=== PATIENT | male | born 1960 | race Caucasian/White ===

== ENCOUNTER 2022-09-29 17:47 | Emergency (ER) | payer MEDICARE, SELFPAY ==
[2022-09-29 17:51] VITALS: BP 114/74; PULSE 75; RESP 16; TEMP 36.4; O2SAT 94; BMI 30.3
--- NOTE | 2022-09-29 19:08 | ED.WOUNDLAC ---
HPI - Wound/Laceration <MCKENNA Hayes - Last Filed: 09/29/22 20:38> General Chief Complaint: Wound/Laceration Stated Complaint: R hand gash bleeding Time Seen by Provider: 09/29/22 19:08 Mode of arrival: Family Vehicle History of Present Illness HPI narrative: This is a 62-year-old gentleman who presents emergency department after he accidentally cut himself on some metal framing around the water heater today at home. States his last tetanus was 3 years ago, bleeding is controlled with a pressure dressing. Patient is not on anticoagulants, only medical history is a STEMI 3 years ago with a stent placed to his LAD. He denies any sensation changes, states that he was falling down from the ladder and his right arm grazed the metal bracket holding the water heater. He denies any other injuries, denies neck pain, headache, head injury, whiplash, loss of consciousness, nausea vomiting. He is not had any medication prior to arrival, states that his pain is a 2/10 and his bleeding is controlled with a pressure dressing at this time. Related Data Previous Rx's Medication Instructions Recorded mupirocin 2 % topical ointment 1 applic topical DAILY #22 grams 09/29/22 Allergies Allergy/AdvReac Type Severity Reaction Status Date / Time No Known Drug Allergies Allergy Verified 09/29/22 17:53 Review of Systems <MCKENNA Hayes - Last Filed: 09/29/22 20:38> Review of Systems ROS Unobtainable: All systems reviewed & are unremarkable except as noted in HPI and below Patient History <MCKENNA Hayes - Last Filed: 09/29/22 20:38> Social History Smoking Status: Never smoker Smoking Status: Never smoker alcohol intake frequency: a few times a month Alcohol type: wine Substance Use Type: does not use Exam <MCKENNA Hayes - Last Filed: 09/29/22 20:38> Narrative Exam Narrative: Reviewed vitals signs and nursing notes. General: cooperative, in no acute distress, well groomed MSK: moves all extremities, neurovascularly intact, no weakness, normal tone Skin: brisk capillary refill, without rash, wound to the volar aspect of his right forearm near his rest, linear, bleeding controlled, no foreign body, no suspected tendon or vascular injury Laceration is shaped somewhat like an L, irregular, 10 cm long, fully through the dermis without foreign body, tendon or vascular injury. Slow ooze of blood coming from underneath the wound is controlled with pressure dressing and is hemostatic after suture repair. Wound was thoroughly cleansed with normal saline prior to wound closure. Patient tolerated well Neuro: normal speech and cognition, A&O x3, ambulatory, clear speech Initial Vital Signs Initial Vital Signs: Vital Signs Temperature 97.6 F 09/29/22 17:51 Pulse Rate 75 09/29/22 17:51 Respiratory Rate 16 09/29/22 17:51 Blood Pressure 114/74 09/29/22 17:51 Pulse Oximetry 94 09/29/22 17:51 Oxygen Delivery Method Room Air 09/29/22 17:51 <Hardeep Aaron DO - Last Filed: 09/30/22 01:58> Initial Vital Signs Initial Vital Signs: Vital Signs Temperature 97.6 F 09/29/22 17:51 Pulse Rate 75 09/29/22 17:51 Respiratory Rate 16 09/29/22 17:51 Blood Pressure 114/74 09/29/22 17:51 Pulse Oximetry 94 09/29/22 17:51 Oxygen Delivery Method Room Air 09/29/22 17:51 Procedures <MCKENNA Hayes - Last Filed: 09/29/22 20:38> Laceration Repair Laceration 1: Site: upper extremity Side (If applicable): right Size (cm): 3 Description: linear, flap and irregular Depth: simple, single layer Local Anesthetic: lidocaine 2% Amount of anesthesia used (mL): 5 Pre-repair: wound explored, irrigated extensively and deep structures intact Skin layer closed with: nylon Skin layer suture size: 5-0 Number of sutures: 16 Technique: simple, interrupted and horizontal mattress Course <MCKENNA Hayes - Last Filed: 09/29/22 20:38> Orders Ordered: Discontinued Medications Acetaminophen (Acetaminophen 325 Mg Tablet) 975 mg PO NOW ONE Stop: 09/29/22 19:28 Last Admin: 09/29/22 19:48 Dose: 975 mg Documented By: AGUILAR Bacitracin (Bacitracin Oint 0.9 Gm Pckt) 1 applic TOP NOW ONE Stop: 09/29/22 19:10 Last Admin: 09/29/22 19:28 Dose: 1 applic Documented By: SCAR Diphtheria/Tetanus/Acell Pertussis (Tet,Diph,Pertuss(Acell),Vac/Pf 0.5 Ml Syringe) 0.5 ml IM .ONCE ONE Stop: 09/29/22 19:10 Last Admin: 09/29/22 20:08 Dose: Not Given Documented By: SB Ketorolac Tromethamine (Ketorolac 30 Mg/Ml Vial) 30 mg IM NOW ONE Stop: 09/29/22 19:10 Last Admin: 09/29/22 20:17 Dose: Not Given Documented By: SCAR Ketorolac Tromethamine (Ketorolac 10 Mg Tablet) 10 mg PO NOW ONE Stop: 09/29/22 19:28 Last Admin: 09/29/22 19:49 Dose: 10 mg Documented By: AGUILAR Lidocaine HCl (Lidocaine 2% Inj Sdv 5ml) 5 ml INJ INTRA-OP ONE Stop: 09/29/22 19:10 Last Admin: 09/29/22 19:27 Dose: 5 ml Documented By: SCAR Vital Signs Vital signs: Vital Signs - 8 hr 09/29/22 17:51 Temperature 97.6 F Pulse Rate 75 Respiratory Rate 16 Blood Pressure 114/74 Pulse Oximetry 94 Oxygen Delivery Method Room Air <Hardeep Aaron DO - Last Filed: 09/30/22 01:58> Orders Ordered: Discontinued Medications Acetaminophen (Acetaminophen 325 Mg Tablet) 975 mg PO NOW ONE Stop: 09/29/22 19:28 Last Admin: 09/29/22 19:48 Dose: 975 mg Documented By: AGUILAR Bacitracin (Bacitracin Oint 0.9 Gm Pckt) 1 applic TOP NOW ONE Stop: 09/29/22 19:10 Last Admin: 09/29/22 19:28 Dose: 1 applic Documented By: SCAR Diphtheria/Tetanus/Acell Pertussis (Tet,Diph,Pertuss(Acell),Vac/Pf 0.5 Ml Syringe) 0.5 ml IM .ONCE ONE Stop: 09/29/22 19:10 Last Admin: 09/29/22 20:08 Dose: Not Given Documented By: SCAR Ketorolac Tromethamine (Ketorolac 30 Mg/Ml Vial) 30 mg IM NOW ONE Stop: 09/29/22 19:10 Last Admin: 09/29/22 20:17 Dose: Not Given Documented By: SCAR Ketorolac Tromethamine (Ketorolac 10 Mg Tablet) 10 mg PO NOW ONE Stop: 09/29/22 19:28 Last Admin: 09/29/22 19:49 Dose: 10 mg Documented By: AGUILAR Lidocaine HCl (Lidocaine 2% Inj Sdv 5ml) 5 ml INJ INTRA-OP ONE Stop: 09/29/22 19:10 Last Admin: 09/29/22 19:27 Dose: 5 ml Documented By: SB Vital Signs Vital signs: Vital Signs - 8 hr 09/29/22 17:51 Temperature 97.6 F Pulse Rate 75 Respiratory Rate 16 Blood Pressure 114/74 Pulse Oximetry 94 Oxygen Delivery Method Room Air MDM - Wound/Laceration <SHEY HayesP - Last Filed: 09/29/22 20:38> MDM Narrative Medical decision making narrative: Chief Complaint: laceration forearm Independent historian: Patient Differential diagnoses include but are not limited to: Skin laceration, foreign body, vascular injury, tendon injury, muscle laceration, I have independently reviewed the patient's vital signs and nursing notes as well as prior records if available. Course of care: Patient's thoroughly irrigated with normal saline, nor foreign debris or foreign body, sixteen sutures were placed using 5.0 Ethilon, combination of horizontal mattress and simple sutures, wound was hemostatic following suture repair, patient tolerated well, recommended to have sutures removed in 7-10 days. Apply topical bacitracin following suture repair. Social considerations that may affect disposition: none Questions are addressed and there is agreement with the plan and for follow-up. Patient is appropriate for outpatient management. MIPS: This encounter doesn't have any diagnosis' associated with MIPS criteria. Discharge Plan Departure Patient Disposition: Home Clinical Impression: Laceration Instructions: How to Care for a Laceration After Repair, DI for Laceration Repair Activity Restrictions/Additional Instructions: *You have been diagnosed with a laceration to your right forearm, you had 16 sutures today. Please have these removed in 7-10 days. Please covered with topical antibiotic ointment, keep it elevated as much as possible, ice for swelling, and keep it covered with a Band-Aid so that if it is oozy it does not make a mess. It was nice to meet you, your daughters until areas, I appreciate your patients today while we sewed your arm together. Have a good rest of the evening. *What to do: *Please continue to take your regular medications as directed. ] New medication prescriptions sent to your pharmacy: [ ] [ x] New medication written as a paper prescription [ ] No new medications given *Please follow up with your primary care provider in 2-3 days, call for an appointment. Let them know you were seen in the Emergency Department and that we asked that you be seen for follow-up. We will electronically transmit a record of today's note if your PCP is in our system *If you do not have a primary care provider please contact [phone] to establish care with one of the [facility] primary care providers. *Return to Emergency Department if you should have any new, worsening, or concerning symptoms, such as [fever greater than 101F, chills, worsening pain, persistent vomiting or other bothersome symptoms]. Prescriptions: New mupirocin 2 % ointment 1 applic topical DAILY Qty: 22 0RF Stand Alone Forms: Patient Portal/API <Hardeep Aaron, - Last Filed: 09/30/22 01:58> [facility] ED Attending Alvinature Attestation: I was immediately available in the department for consultation. Documentation has been reviewed. I agree with assessment and plan.
[2022-09-29] MEDS: LIDOCAINE 2% INJ SDV 5ML 5 ML INJ (19:27)
[2022-09-29] MEDS: BACITRACIN OINT 0.9 GM PCKT 1 APPLIC TOP (19:28)
[2022-09-29] MEDS: ACETAMINOPHEN 325 MG TABLET 975 MG PO (19:48)
[2022-09-29] MEDS: KETOROLAC 10 MG TABLET PO (19:49)
--- NOTE | 2022-09-29 20:24 | PC.NURSE ---
Pt reports falling about 2 steps off of a ladder that slid out from underneath him. Pt reached for a water-heater strap which caused an abrasion and avulsion flap to his right anterior wrist/forearm area. Pt did hit his head, but denies pain. Pt denies chest pain, denies pain in his back and neck. Denies thinners and denies LOC. Provider aware of patient presentation.
== END 2022-09-29 20:45 | disposition home or self-care (01) ==
PROVIDERS: Emergency Provider Nurse Practitioner Critical Care Medicine
DX: S41.111A Laceration without foreign body of right upper arm, initial encounter (principal); W26.9XXA Contact with unspecified sharp object(s), initial encounter
CPT/HCPCS: 12002; 99283